=== PATIENT | male | born 1965 | race Hispanic/Latino ===

== ENCOUNTER 2021-12-15 09:27 | Day surgery (SDC) | payer OTHER ==
[~2021-12-15 09:27] MED LIST: ACETAMINOPHEN 500 MG TAB PO SCH; CELECOXIB 200 MG CAP PO SCH; GABAPENTIN 300 MG CAP PO SCH; LACTATED RINGERS 1,000 ML IV SCH; MIDAZOLAM 2 MG/2 ML INJ IV SCH
--- NOTE | 2021-12-15 10:54 | Anesthesia Consultation ---
Anesthesia Consult and Med Hx Date of service: 12/15/21 - Airway Anesthetic Teeth Evaluation: Poor ROM Head & Neck: Adequate Mental/Hyoid Distance: Adequate Mallampati Class: Class III Intubation Access Assessment: Possibly Difficult - Pre-Operative Health Status ASA Pre-Surgery Classification: ASA3 Proposed Anesthetic Plan: General - Pulmonary Hx Smoking: Yes (1/2 PPD) Hx Asthma: Yes (triggered by cats; otherwise no symptoms) Hx Respiratory Symptoms: No - Cardiovascular System Hx Hypertension: Yes Hx Heart Attack/AMI: No - Central Nervous System CVA: No - Endocrine Hx Renal Disease: No Hx Liver Disease: Yes (elevated LFTs 1 month ago 2/2 pain meds, per patient) Hx Insulin Dependent Diabetes: No Hx Non-Insulin Dependent Diabetes: No Hx Thyroid Disease: No - Other Systems Hx Substance Use: Yes (methamphetamine, last use 4 days ago) - Additional Comments Anesthesia Medical History Comments: No hx anesthetic complications.
[2021-12-15] MEDS ORDERED: oxyCODONE 5 MG TAB PO PRN (10:55)
[2021-12-15] MEDS ORDERED: HYDROmorphone 1 MG/1 ML INJ IV PRN (10:55)
[2021-12-15] MEDS ORDERED: ONDANSETRON 4 MG/2 ML INJ IV PRN (10:55)
--- NOTE | 2021-12-15 10:55 | Anesthesia Day of Surgery ---
Anesthesia Day of Surgery - Day of Surgery Patient Examined: Yes Patient H&P Reviewed: Yes Patient is NPO: Yes
[2021-12-15 11:09] LABS: Mean Corpuscular HGB Conc 33 % (32-34); Mean Corpuscular Volume 92 fl (84-94); Platelet Count 122 K/mm3 (140-440); Red Cell Distribution Width 13.9 % (13.2-15.2)
[2021-12-15 11:36] LABS: Alanine Aminotransferase 109 units/L (7-56); BUN/Creatinine Ratio 13; Blood Urea Nitrogen 13 mg/dL (9-20); Calcium 8.9 mg/dL (8.4-10.2); Hemolysis Index 26
[2021-12-15] MEDS ORDERED: ceFAZolin/STERILE WATER 2 GM/20 ML SYRINGE IV NR (12:08)
[2021-12-15] MEDS ORDERED: ceFAZolin/Water 2 GM/20 ML 2 GM/20 ML SYRINGE IV ONE (12:13)
[2021-12-15] MEDS ORDERED: MIDAZOLAM 2 MG/2 ML INJ ONE (12:18)
[2021-12-15] MEDS ORDERED: propofoL 200 MG/20 ML VIAL IV ONE (12:19)
[2021-12-15] MEDS ORDERED: fentaNYL 100 MCG/2 ML INJ ONE (12:19)
[2021-12-15] MEDS ORDERED: LIDOCAINE MPF (2%) 20 MG/1 ML VIAL 5 ML ONE (12:19)
[2021-12-15] MEDS ORDERED: SODIUM CHLORIDE 0.9% IRR 1,500 ML BOTTLE IR ONE (13:13)
--- NOTE | 2021-12-15 13:44 | Post Operative Note ---
Date of procedure: 12/15/21 Pre-op diagnosis: severe pain rt Post-op diagnosis: same Findings: very thick vas cyst Procedure: scrotal exp excison epidi and cyst vas Anesthesia: EBA Surgeon: CISCO CORNELIUS Estimated blood loss: minimal Pathology: list (epidi cyst vas) Specimen disposition: to lab Condition: stable Disposition: PACU
--- NOTE | 2021-12-15 13:46 | Discharge Summary ---
Short Stay Discharge Plan Activity: other (no straining ice!!) Weight Bearing Status: Full Weight Bearing Diet: regular Special Instructions: other (ice packs in rr and x 24 hrs ) Follow up with: PRIMARY CARE, [Primary Care Provider] - 7 Days CISCO CORNELIUS MD [Staff Physician] - 7 Days
[2021-12-15 15:14] VITALS: BP 130/87
--- NOTE | 2021-12-15 18:23 | Post Anesthesia Evaluation ---
- Post Anesthesia Evaluation Patient Participated: Yes Airway Patent: Yes Stable Respiratory Function: Yes Nausea/Vomiting: No Temp > 96.8F: Yes Pain Manageable: Yes Adequeate Hydration: Yes Anesthesia Complications: No
--- NOTE | 2021-12-15 19:38 | Operative Report ---
DATE OF SURGERY: 12/15/2021 PREOPERATIVE DIAGNOSES: Severe scrotal pain, scrotal mass, very thickened vas. POSTOPERATIVE DIAGNOSES: Severe scrotal pain, scrotal mass, very thickened vas. PROCEDURES: Right scrotal exploration, excision of scrotal mass, epididymectomy and excision of portion of the vas. SURGEON: John Wilder MD ANESTHESIA: General. FINDINGS: This is a gentleman who has had 6 months of severe right-sided scrotal pain. He has the cyst. All risks and implications discussed. DESCRIPTION OF PROCEDURE: The patient was brought to operating room and placed on the operating table. Following induction of anesthesia, placed in supine position, prepped and draped in usual sterile fashion. A right hemiscrotal incision was made, carried down to the tunica vaginalis. This was opened, approximately 40 mL of clear fluid was obtained. The testicle was normal. There was a cystic mass just inferior to the epididymis, looked to be separate from it, this was multiloculated, excised. The epididymal head was full, so this was also excised and suture ligated. The vasculature to the testis was fine. The vas was dissected free, preserving the vasculature and very thickened vas, a segment was sent to pathology. The patient tolerated the procedure well. He had severe chronic pain. He understands that this may be staged. We may have to do an orchiectomy. We did our best that the testicle was quite viable, was white. A 0.5-inch [place] was placed and he was brought to recovery in stable condition. TID: [id number] RECEIPT: [id number] TRACIE/YOSHI/RAQUEL
== END 2021-12-15 15:35 | disposition home or self-care (01) ==
LOC: OR 09:27
PROVIDERS: ATTEND Urology
DX: N50.82 Scrotal pain (principal); N50.89 Other specified disorders of the male genital organs; F17.210 Nicotine dependence, cigarettes, uncomplicated; I10 Essential (primary) hypertension; J45.909 Unspecified asthma, uncomplicated; K21.9 Gastro-esophageal reflux disease without esophagitis; D64.9 Anemia, unspecified; M19.90 Unspecified osteoarthritis, unspecified site; Z98.890 Other specified postprocedural states; Z88.8 Allergy status to other drugs, medicaments and biological substances; Z87.442 Personal history of urinary calculi
CPT/HCPCS: 11422; 36415; 54860; 55250; 80053; 85027; 88304; J0690; J1170; J2250; J2704; J3010; J7120